=== PATIENT | female | born 1955 | race Caucasian/White ===

== ENCOUNTER 2022-04-16 17:40 | Inpatient (IN) | payer BC ==
[~2022-04-16] VITALS: Ht 157.5 cm; Wt 74.4 kg
[2022-04-16 17:45] VITALS: BP_SYST 135
--- NOTE | 2022-04-16 17:55 | NUR ---
PT TRAIGED AND PLACED IN ED WAITING ROOM FOR AVAILABLE BED IN MAIN ED. ER MD AWARE OF MSE NEEDS
[2022-04-16 19:18] LABS: BASOPHILS % (AUTO) 0.4 % (0.0-2.0); EOSINOPHILS % (AUTO) 0.7 % (0.0-4.0); HEMATOCRIT 37.7 % (36-48); HEMOGLOBIN 12.7 g/dL (12.0-16.0); LYMPHOCYTES # (AUTO) 2.2 K/uL (1.0-5.5); LYMPHOCYTES % (AUTO) 31.4 % (20.5-51.5); MEAN CORPUSCULAR HEMOGLOBIN 29 pg (27-31); MEAN CORPUSCULAR HGB CONC 34 % (32-36); MEAN CORPUSCULAR VOLUME 87 fL (79.0-98.0); MONOCYTES # (AUTO) 0.4 K/uL (0.0-1.0); MONOCYTES % (AUTO) 6.1 % (1.7-9.3); NEUTROPHILS # (AUTO) 4.4 K/uL (1.8-7.7); NEUTROPHILS % (AUTO) 61.4 % (40.0-70.0); PLATELET COUNT (AUTO) 230 K/uL (130-430); RED BLOOD CELL COUNT(AUTO) 4.35 MIL/uL (4.2-6.2); RED CELL DISTRIBUTION WIDTH 13.3 % (9.0-15.0); WHITE BLOOD COUNT (AUTO) 7.1 K/uL (4.8-10.8)
[2022-04-16 19:24] LABS: CALCIUM 9.1 mg/dL (8.4-11.0); CREATININE 0.68 mg/dL (0.55-1.30); POTASSIUM 4.1 mmol/L (3.5-5.1)
[2022-04-16 19:30] LABS: ALBUMIN 3.4 g/dL (3.4-4.8); TOTAL BILIRUBIN 0.8 mg/dL (0.0-1.0)
[2022-04-16 21:07] LABS: BILIRUBIN,URINE NEGATIVE (NEGATIVE); BLOOD, URINE NEGATIVE (NEGATIVE); CLARITY/URINE CLEAR (CLEAR); COLOR,URINE YELLOW (YELLOW); GLUCOSE,URINE NEGATIVE (NEGATIVE); KETONES,URINE NEGATIVE (NEGATIVE); LEUKOCYTE ESTERASE ,URINE TRACE (NEGATIVE); NITRITE, URINE NEGATIVE (NEGATIVE); PH,URINE 5.5 (5.0-8.0); PROTEIN URINE NEGATIVE (NEGATIVE); UROBILINOGEN,URINE 0.2 (0.2-1.0)
[2022-04-16 21:19] LABS: BACTERIA,URINE RARE /HPF (None Seen); RBC,URINE NONE SEEN /HPF (0-3); WBC,URINE 0-3 /HPF (0-3)
[2022-04-16] MEDS ORDERED: MAG HYDROX/AL HYDROX/SIMETH 30 ML, LIDOCAINE VISCOUS 2% 15ML (PO) 15 ML, DICYCLOMINE HC... PO ONE ×3 (22:00)
[2022-04-16] MEDS ORDERED: MORPHINE 4 MG INJ. 4 MG/ML VIAL IVP ONE (22:00)
[2022-04-16] MEDS ORDERED: ONDANSETRON HCL 4 MG/2 ML VIAL IVP ONE ×2 (22:00)
[2022-04-16] MEDS ORDERED: NACL 0.9% 1,000 ML IV ONE (22:00)
--- NOTE | 2022-04-16 22:45 | NUR ---
PT BIB AMB WITH TRIAG E NURSE. C/O ABD PAIN X2 DAYS GETTING WORSE/ PT. HX DM, IBS, DIVERTICULOSIS WITH CHRONIC DIAHREA. PAIN LEVAL 07/17. DR ROSS SANTAMARIA/ EXAM
--- NOTE | 2022-04-16 23:00 | NUR ---
HEMACULT SLIDE COLLECTED AND SENT TO LAB WITH MARJAN ROSE.
--- NOTE | 2022-04-16 23:00 | NUR ---
Sent Hemoccult to lab.
--- NOTE | 2022-04-17 01:42 | NUR ---
PT RESTING COMFORTABLY. NO C/O PAIN OR NAUSEA AT THIS TIME. VSS CONTINUED MONITORING
[2022-04-17] MEDS ORDERED: ONDANSETRON HCL 4 MG/2 ML VIAL IVP PRN (03:30)
[2022-04-17] MEDS ORDERED: MORPHINE 2 MG/ML INJ. SYRINGE IVP PRN (03:30)
--- NOTE | 2022-04-17 03:32 | NUR ---
Admit bed requested Patient will be admitted to care of [YONATHAN]. Admitted to [MED SURG] unit. Diagnosis [ABDOMINAL PAIN/DIVERTICULITIS/PANCREATITIS] Inpatient (Yes or No) [YES] Observation (Yes or No) [NO] Orientation concerns or request close to nursing station (Yes or No) [NO] Covid Status [PEND] On vent or bipap [NO] Isolation requirements [NO] Needs a sitter [NO] From Home (Yes or if No enter name of facility) [YES] Requires Dialysis (Yes or No) [NO] Med Rec Completed (Yes of No) [NO]
[2022-04-17] MEDS ORDERED: METF-518 PO (03:35)
--- NOTE | 2022-04-17 03:37 | NUR ---
SANDRO BAKER COVSARAH NASAL SWAB COLLECTED AND SENT
[2022-04-17] MEDS: MORPHINE 2 MG/ML INJ. SYRINGE IVP PRN (04:08)
--- NOTE | 2022-04-17 04:10 | NUR ---
PT C/O RLQ ABD PAIN 04/16. NO C/O NAUSEA. MEDICATED PER ADMITTING MD ORDERS/ EMAR VSS CONTINUED MONITORING
--- NOTE | 2022-04-17 06:10 | NUR ---
PT RESTING COMFORTABLY. 0/10 PAIN SCALE. RESP EVEN/ UNLABORED. VSS CONTINUED MONITORING
[2022-04-17 07:30] LABS: BASOPHILS % (AUTO) 0.3 % (0.0-2.0); EOSINOPHILS % (AUTO) 0.6 % (0.0-4.0); HEMATOCRIT 34.6 % (36-48); HEMOGLOBIN 11.7 g/dL (12.0-16.0); LYMPHOCYTES # (AUTO) 1.9 K/uL (1.0-5.5); LYMPHOCYTES % (AUTO) 29.9 % (20.5-51.5); MEAN CORPUSCULAR HEMOGLOBIN 29 pg (27-31); MEAN CORPUSCULAR HGB CONC 34 % (32-36); MEAN CORPUSCULAR VOLUME 86 fL (79.0-98.0); MONOCYTES # (AUTO) 0.4 K/uL (0.0-1.0); MONOCYTES % (AUTO) 6.2 % (1.7-9.3); NEUTROPHILS # (AUTO) 4.1 K/uL (1.8-7.7); PLATELET COUNT (AUTO) 209 K/uL (130-430); RED CELL DISTRIBUTION WIDTH 13.4 % (9.0-15.0); WHITE BLOOD COUNT (AUTO) 6.4 K/uL (4.8-10.8)
--- NOTE | 2022-04-17 07:30 | NUR ---
ASSUMED CARE OF PT AT THIS TIME. PT RESTING COMFORTABLY. REPORTS 6/10 LLQ PAIN WHICH SHE STATES IS TOLERABLE. RESP EVEN AND UNLABORED. VSS. AWAITING MEDICAL BED, WILL CONT TO MONITOR
[2022-04-17 08:05] LABS: ALBUMIN 2.9 g/dL (3.4-4.8); CALCIUM 8.5 mg/dL (8.4-11.0); CREATININE 0.55 mg/dL (0.55-1.30); POTASSIUM 4.4 mmol/L (3.5-5.1); TOTAL BILIRUBIN 0.8 mg/dL (0.0-1.0)
--- NOTE | 2022-04-17 08:15 | NUR ---
PT ON CLEAR LIQUID DIET PER GI, BREEAKFAST TRAY GIVEN
--- NOTE | 2022-04-17 10:00 | NUR ---
PT IN BED RESTING COMFORTABLY. NO DISTRESS NOTED. 510 PAIN. VSS. AWAITING MEDICAL BED. WILL CONT TO MONITOR
[2022-04-17] MEDS: PANTOPRAZOLE SODIUM 40 MG/VIAL (PROTONIX) IVP SCH (10:52)
[2022-04-17] MEDS: D5/0.45 NS 1,000 ML IV SCH (10:56)
--- NOTE | 2022-04-17 12:00 | NUR ---
NO CHANGE IN STATUS. VSS. AWAITING MEDICAL BED. WILL CONT TO MONITOR
--- NOTE | 2022-04-17 12:59 | NUR ---
PT UPSET BECAUSE NO BEDS AVAILABLE ON FLOOR AT THIS TIME. PT STATES SHE WANTS TO SIGN OUT AMA. PT SPOKE TO CABLE RESPOOLER WHO EMPHASIZED THAT THERE IS NO AVAILBLE BEDS. PT WOULD LIKE TO SPEAK TO ADMITTING MD PRIOR TO LEAVING. CALL OUT FOR DR MCMANUS. WILL CONT TO MONITOR
--- NOTE | 2022-04-17 13:19 | NUR ---
SPOKE WITH DR MCMANUS, STATES HIS [employer] DEVELOPER WILL COME AND SEE PT. PT MADE AWARE.
--- NOTE | 2022-04-17 16:00 | NUR ---
PT IN BED RESTING COMFORTABLY. NO DISTRESS NOTED. RESP EVEN AND UNLABORED. NO CHANGE IN STATUS. AWAITING MEDICAL BED. WILL CONT TO MONITOR
--- NOTE | 2022-04-17 17:01 | NUR ---
Pt moved to bed H2
[2022-04-17] MEDS ORDERED: MORPHINE 2 MG/ML INJ. SYRINGE ONE (19:25)
[2022-04-17] MEDS ORDERED: PIPERACILLIN/TAZO 3.375/DEX-IS 50 ML IV SCH (20:00)
--- NOTE | 2022-04-17 20:05 | NUR ---
ADMIT NOTE Received pt from ER to the floor with a diagnosis of abdominal pain. Admission process initiated. patient oriented to pain management, safety and call light-teach back done.
[2022-04-17 20:06] LABS: BASOPHILS % (AUTO) 0.4 % (0.0-2.0); EOSINOPHILS % (AUTO) 0.3 % (0.0-4.0); HEMATOCRIT 37.5 % (36-48); HEMOGLOBIN 12.6 g/dL (12.0-16.0); LYMPHOCYTES # (AUTO) 1.7 K/uL (1.0-5.5); LYMPHOCYTES % (AUTO) 23.4 % (20.5-51.5); MEAN CORPUSCULAR HEMOGLOBIN 29 pg (27-31); MEAN CORPUSCULAR HGB CONC 34 % (32-36); MEAN CORPUSCULAR VOLUME 86 fL (79.0-98.0); MONOCYTES # (AUTO) 0.4 K/uL (0.0-1.0); MONOCYTES % (AUTO) 5.3 % (1.7-9.3); NEUTROPHILS # (AUTO) 5.1 K/uL (1.8-7.7); NEUTROPHILS % (AUTO) 70.6 % (40.0-70.0); PLATELET COUNT (AUTO) 226 K/uL (130-430); RED BLOOD CELL COUNT(AUTO) 4.36 MIL/uL (4.2-6.2); RED CELL DISTRIBUTION WIDTH 13.5 % (9.0-15.0); WHITE BLOOD COUNT (AUTO) 7.2 K/uL (4.8-10.8)
[2022-04-17 20:25] LABS: CREATININE 1.11 mg/dL (0.55-1.30); POTASSIUM 4.4 mmol/L (3.5-5.1)
[2022-04-17 20:30] LABS: ALBUMIN 3.2 g/dL (3.4-4.8)
--- NOTE | 2022-04-17 21:19 | NUR ---
Patient will be admitted to care of Dr Garibay. Admitted to Medsurg unit. Will go to room 116. Belongings list completed. Complete and up to date summary report printed. SBAR report to be given at bedside with opportunity for questions.
[2022-04-18] MEDS: D5/0.45 NS 1,000 ML IV SCH ×2 (00:59→21:50)
--- NOTE | 2022-04-18 05:51 | NUR ---
CONSULTATION PAGED/CALLED Reason for Consultation: INFECTION Person Who was Notified: MARVIN Consulting Physician: Acid Bath Mixer Specialty: Ordering Physician:
--- NOTE | 2022-04-18 07:38 | NUR ---
Closing Patient resting in bed, unlabored breathing on room air. Patient reported abdominal pain, no nausea. Offered pain medication but patient stated the pain was tolerable. Ambulatory with steady gait. Call light in reach, bed low and locked. Care endorsed to oncoming nurse.
[2022-04-18 08:19] VITALS: BP_SYST 107
[2022-04-18] MEDS: PANTOPRAZOLE SODIUM 40 MG/VIAL (PROTONIX) IVP SCH (08:47)
[2022-04-18] MEDS: PIPERACILLIN/TAZO 3.375/DEX-IS 50 ML IV SCH ×3 (08:47→21:50)
[2022-04-18] MEDS: MORPHINE 2 MG/ML INJ. SYRINGE IVP PRN (08:51)
--- NOTE | 2022-04-18 10:36 | NUR ---
ROUNDS LATE ENTRY DUE TO PATIENT CARE. 07- ASSUMED CARE IOF MATIENT. PATIENT APPEARED COMFORTABLLE. POC DISCUSSED. VERBALIZED UNDERSTANDING - DR RUSSELL HERE TO SEE PT AND SCHEDULEDHER FOR COLONOSCOPY 04/19
[2022-04-18 11:56] VITALS: BP_SYST 125
--- NOTE | 2022-04-18 15:28 | NUR ---
pain patient verbalized abdominal pain 04/16 but refused to take any pain medication at this time. educated patient on pain management and verbalized understanding
[2022-04-18 16:00] VITALS: BP_SYST 124
[2022-04-18] MEDS ORDERED: BISACODYL 5 MG TABLET.DR (DULCOLAX) PO ONE (17:00)
[2022-04-18] MEDS ORDERED: GOLYTELY / COLYTE SOLUTION 4 LITERS PO ONE (18:00)
--- NOTE | 2022-04-18 19:04 | NUR ---
CLOSING BOWEL PREP STARTED AT 1700. INSTRUCTED NPO POST MIDNIGHT AND TO DRINK MUCH GOLYTELY SHE CAN UNTIL THEN. CONSENTS SIGNED FOR COLONOSCOPY AND EGD
--- NOTE | 2022-04-18 19:56 | NUR ---
RECEIVED PT OOB WALKING TO BATHROOM, PT IS TAKING BOWL PREP SOLUTION. GAIT IS STEADY. IV SITE TO RT FA SITE CDI Addendum: 04/18/22 at 2153 by Cady Adams RN [id number]: PT BM IS CLEAR AFTER DRINKING FIRST GOLYTELY
[2022-04-18 20:00] VITALS: BP_SYST 144
[2022-04-19 01:30] VITALS: BP_SYST 142
[2022-04-19 06:50] LABS: BASOPHILS % (AUTO) 0.3 % (0.0-2.0); EOSINOPHILS % (AUTO) 0.7 % (0.0-4.0); HEMATOCRIT 37.8 % (36-48); HEMOGLOBIN 12.8 g/dL (12.0-16.0); LYMPHOCYTES # (AUTO) 1.8 K/uL (1.0-5.5); LYMPHOCYTES % (AUTO) 30.3 % (20.5-51.5); MEAN CORPUSCULAR HEMOGLOBIN 29 pg (27-31); MEAN CORPUSCULAR HGB CONC 34 % (32-36); MEAN CORPUSCULAR VOLUME 86 fL (79.0-98.0); MONOCYTES # (AUTO) 0.3 K/uL (0.0-1.0); MONOCYTES % (AUTO) 4.8 % (1.7-9.3); NEUTROPHILS # (AUTO) 3.9 K/uL (1.8-7.7); NEUTROPHILS % (AUTO) 63.9 % (40.0-70.0); PLATELET COUNT (AUTO) 222 K/uL (130-430); RED BLOOD CELL COUNT(AUTO) 4.38 MIL/uL (4.2-6.2); RED CELL DISTRIBUTION WIDTH 13.2 % (9.0-15.0); WHITE BLOOD COUNT (AUTO) 6.1 K/uL (4.8-10.8)
[2022-04-19] MEDS: PIPERACILLIN/TAZO 3.375/DEX-IS 50 ML IV SCH ×3 (07:06→21:16)
[2022-04-19 07:46] LABS: PROTHROMBIN TIME 10.2 SECS (9.5-12.5)
--- NOTE | 2022-04-19 08:00 | NUR ---
Patient is currently in GI lab for EGD and colonoscopy. Will wait for patient to return.
[2022-04-19 08:12] LABS: CALCIUM 8.9 mg/dL (8.4-11.0); CREATININE 0.63 mg/dL (0.55-1.30); POTASSIUM 3.7 mmol/L (3.5-5.1)
[2022-04-19] MEDS ORDERED: fentaNYL CITRATE/PF 100 MCG/2 ML AMP ONE (09:10)
[2022-04-19] MEDS: MEPERIDINE 100 MG INJ. 100 MG/ML VIAL ONE ×2 (09:11→09:14)
[2022-04-19] MEDS: MIDAZOLAM HCL 5 MG/5 ML VIAL ONE ×2 (09:11→09:14)
--- NOTE | 2022-04-19 10:30 | NUR ---
Opening Notes/Pt back from GI Patient is back from GI lab, stable at this time. Patient is awake, alert and oriented x4. No resp distress noted. Breathing is even and unlabored, RA. Pt denies any pain at this time. Pt is c/o feeling "bloated" on the stomach. Abdomen is slightly distended, nontender but pain reported upon palpitation. Pt denies any NVD. Pt denies any dark stools. IV site on right FA 22 gauge intact, D5 1/2 NS @ 50 ml/hr, infusing well. All needs met at this time. Safety and fall precautions in place. Bed in lowest position, alarm on, locked. Will continue to monitor.
[2022-04-19] MEDS: PANTOPRAZOLE SODIUM 40 MG/VIAL (PROTONIX) IVP SCH (10:41)
[2022-04-19 12:00] VITALS: BP_SYST 129
--- NOTE | 2022-04-19 12:00 | NUR ---
Notes Patient is sleeping at this time. NO resp distress, RA. No signs of pain. Will continue to monitor.
[2022-04-19] MEDS: D5/0.45 NS 1,000 ML IV SCH (15:16)
[2022-04-19 16:00] VITALS: BP_SYST 122
--- NOTE | 2022-04-19 16:00 | NUR ---
Notes Patient is laying in bed, resting at this time. No resp distress, RA. Pt denies any pain at this time. Possible DC tomorrow. Advanced patient diet to mech soft. Will continue to monitor.
--- NOTE | 2022-04-19 18:59 | NUR ---
Closing Notes Patient is awake, alert and oriented x4. NO resp distress ntoed. Breathing is even and unlabored. Pt denies any pain at this time. IV site on right FA 22 gauge intact, D5 1/2 NS @ 50 ml/hr, infusing well. Pt to resume [facility] soft diet, advance diet as tolerated, will endorse. All needs met at this time Safety and fall precautions in place. Bed in lowest position, locked. Will continue to monitor.
[2022-04-19 20:00] VITALS: BP_SYST 127
[2022-04-19] MEDS: INSULIN REGULAR, HUMAN 100 UNITS/ML, 10 ML VIAL (humuLIN R) SUBCUT PRN (21:37)
[2022-04-20] VITALS: BP_SYST 115
[2022-04-20 04:00] VITALS: BP_SYST 113
[2022-04-20] MEDS: PIPERACILLIN/TAZO 3.375/DEX-IS 50 ML IV SCH (06:07)
--- NOTE | 2022-04-20 06:13 | NUR ---
Patient refused HS insulin coverage for BS 236 and refused AM insulin with BS 141. 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 Patient verbalized understanding and continued to refuse insulin.
[2022-04-20 06:35] LABS: BASOPHILS % (AUTO) 0.3 % (0.0-2.0); EOSINOPHILS # (AUTO) 0.1 K/uL (0.0-0.4); EOSINOPHILS % (AUTO) 1.1 % (0.0-4.0); HEMATOCRIT 34.3 % (36-48); HEMOGLOBIN 11.8 g/dL (12.0-16.0); LYMPHOCYTES # (AUTO) 1.8 K/uL (1.0-5.5); LYMPHOCYTES % (AUTO) 29.9 % (20.5-51.5); MEAN CORPUSCULAR HEMOGLOBIN 29 pg (27-31); MEAN CORPUSCULAR HGB CONC 35 % (32-36); MEAN CORPUSCULAR VOLUME 85 fL (79.0-98.0); MONOCYTES # (AUTO) 0.3 K/uL (0.0-1.0); MONOCYTES % (AUTO) 5.6 % (1.7-9.3); NEUTROPHILS # (AUTO) 3.7 K/uL (1.8-7.7); NEUTROPHILS % (AUTO) 63.1 % (40.0-70.0); PLATELET COUNT (AUTO) 204 K/uL (130-430); RED BLOOD CELL COUNT(AUTO) 4.04 MIL/uL (4.2-6.2); WHITE BLOOD COUNT (AUTO) 5.9 K/uL (4.8-10.8)
[2022-04-20 07:12] LABS: CALCIUM 8.5 mg/dL (8.4-11.0); CREATININE 0.57 mg/dL (0.55-1.30); POTASSIUM 3.9 mmol/L (3.5-5.1)
[2022-04-20] MEDS: PANTOPRAZOLE SODIUM 40 MG/VIAL (PROTONIX) IVP SCH (11:13)
[2022-04-20 11:17] VITALS: BP_SYST 122
[2022-04-20] MEDS: D5/0.45 NS 1,000 ML IV SCH (11:32)
[2022-04-20] MEDS: INSULIN REGULAR, HUMAN 100 UNITS/ML, 10 ML VIAL (humuLIN R) SUBCUT PRN (11:34)
[2022-04-20] MEDS ORDERED: LEVO500T90 PO (12:04)
[2022-04-20 12:50] VITALS: BP_SYST 122
--- NOTE | 2022-04-20 14:10 | NUR ---
D/C Patient Patient given medication reconciliation form and D/C instructions. Exit Care provided. Patient verbalized understanding. MD discussed with patient the results and treatment provided. Ambulatory with steady gait for discharge to home. Patient in stable condition, ID band removed. IV catheter removed, intact and dressing applied, no active bleeding. Patient educated on pain management. All belongings sent with patient.PT left with daughter viki.
== END 2022-04-20 17:23 | disposition home or self-care (01) | DRG 690 ==
LOC: SED 17:40 → SMU 04-17 03:23
PROVIDERS: ADMIT Internal Medicine; ATTEND Internal Medicine
PROC: 0DBE8ZX Excision of Large Intestine, Via Natural or Artificial Opening Endoscopic, Diagnostic (ICD-10-PCS; 2022-04-19)
PROC: 0DB98ZX Excision of Duodenum, Via Natural or Artificial Opening Endoscopic, Diagnostic (ICD-10-PCS; principal; 2022-04-19 09:30)
PROC: 0DB78ZX Excision of Stomach, Pylorus, Via Natural or Artificial Opening Endoscopic, Diagnostic (ICD-10-PCS; 2022-04-19 09:30)
DX: N39.0 Urinary tract infection, site not specified (principal); K29.70 Gastritis, unspecified, without bleeding; N20.0 Calculus of kidney; K58.9 Irritable bowel syndrome, unspecified; K22.2 Esophageal obstruction; E11.9 Type 2 diabetes mellitus without complications; E66.9 Obesity, unspecified; K57.90 Diverticulosis of intestine, part unspecified, without perforation or abscess without bleeding; Z20.822 Contact with and (suspected) exposure to COVID-19; K64.4 Residual hemorrhoidal skin tags; Z80.0 Family history of malignant neoplasm of digestive organs; Z90.710 Acquired absence of both cervix and uterus; Z68.30 Body mass index [BMI] 30.0-30.9, adult; Z79.899 Other long term (current) drug therapy; Z88.8 Allergy status to other drugs, medicaments and biological substances
CPT/HCPCS: 36415; 43239; 45380; 76376; 80048; 80053; 81000; 82150; 82272; 82962; 83605; 83690; 85025; 85610-TC; 87040; 88305; 88312; 88313; 96361; 96374; 99285; C9113; J1815; J2001; J2175; J2250; J2270; J2405; J2543; J3010